=== PATIENT | male | born 1945 | race Caucasian/White ===

== ENCOUNTER 2017-09-18 20:52 | Emergency (ER) | payer MEDICARE, BC ==
[~2017-09-18] VITALS: Ht 175.3 cm; Wt 81.6 kg
[2017-09-18 21:03] VITALS: BP 135/75
--- NOTE | 2017-09-18 21:16 | NUR ---
72 YO MALE BB FAMILY, RT LEG CELLULITIS X9 DAYS; A LOG FELL ON HIS LEG. patient is ON KEFLEX AND BACTOBAN CREAM. PATIENT AMBULATED ER BED WITH STEADY GAIT, SKIN WARM AND DRY, RESP EVEN AND UNLABORED. AWAITING ORDER SFROM PROVIDER
== END 2017-09-18 23:11 | disposition home or self-care (01) ==
LOC: ER 20:58
DX: S81.801A Unspecified open wound, right lower leg, initial encounter (principal); E10.9 Type 1 diabetes mellitus without complications; J45.909 Unspecified asthma, uncomplicated; W20.8XXA Other cause of strike by thrown, projected or falling object, initial encounter; Y93.01 Activity, walking, marching and hiking; Y92.89 Other specified places as the place of occurrence of the external cause; Y99.8 Other external cause status
CPT/HCPCS: 93971-TC; A4606; Z7610